=== PATIENT | male | born 1965 | race Caucasian/White ===

== ENCOUNTER 2022-03-24 07:17 | Day surgery (SDC) | payer OTHER ==
[2022-03-18 09:55] LABS: BASOPHILS % (AUTO) 0.5 % (0-1); EOSINOPHILS # (AUTO) 0.1 X10'3 (0-0.9); EOSINOPHILS % (AUTO) 2.5 % (0-6); LYMPHOCYTES # (AUTO) 1.4 X10'3 (1.1-4.8); MEAN CORPUSCULAR HEMOGLOBIN 30.1 PG (27.0-31.0); MEAN CORPUSCULAR VOLUME 91.3 FL (78-98); MEAN PLATELET VOLUME 7.9 FL (7.4-10.4); MONOCYTES # (AUTO) 0.3 X10'3 (0-0.9); NEUTROPHILS # (AUTO) 2.4 X10'3 (1.8-7.7); PRE OP HEMATOCRIT 44.9 % (42.0-52.0); PRE OP HEMOGLOBIN 14.8 g/dL (14.0-17.9); PRE OP PLATELET COUNT 177 X10'3 (140-440); RED BLOOD COUNT 4.92 X10'6 (4.70-6.10); RED CELL DISTRIBUTION WIDTH 12.9 % (11.5-14.5)
[2022-03-18 10:07] LABS: ALBUMIN/GLOBULIN RATIO 1.4 (1.1-1.5); ALKALINE PHOSPHATASE 85 IU/L (46-116); BLOOD UREA NITROGEN 16 MG/DL (7-18); BUN/CREATININE RATIO 17.2 (5.4-32.0); CHLORIDE 105 MMOL/L (99-107); CREATININE 0.93 MG/DL (0.60-1.10); PRE OP ALT 29 U/L (30-65); PRE OP ANION GAP 5 (8-16); PRE OP AST 18 U/L (10-37); PRE OP BILIRUB, TOTAL 0.5 MG/DL (0.0-1.0); PRE OP GLUCOSE 110 MG/DL (70-104); PRE OP POTASSIUM 4.3 MMOL/L (3.4-5.1); PRE OP SODIUM 139 MMOL/L (135-145); TOTAL CARBON DIOXIDE 29.4 MMOL/L (24-32); TOTAL PROTEIN 6.8 G/DL (6.4-8.2); eGFR 84 ML/MIN
[2022-03-18 10:09] LABS: CLARITY,URINE CLEAR (Clear); COLOR,URINE YELLOW (Yellow); GLUCOSE, URINE NEGATIVE (Neg); KETONES,URINE NEGATIVE (Neg); LEUKOCYTE ESTERASE ,URINE NEGATIVE (Neg); NITRITES, URINE NEGATIVE (Neg); OCCULT BLOOD,URINE NEGATIVE (Neg); PH,URINE 7.5 (4.8-8.0); PROTEIN,URINE NEGATIVE (Neg); UROBILINOGEN,URINE 0.2 E.U/dL (0.2-1.0)
[2022-03-18 10:35] LABS: UA COLLECTION TYPE CLN CATCH MIDSTREAM
[2022-03-24] VITALS (14 sets, daily range): BP systolic 99–144; BP diastolic 62–79
[~2022-03-24] VITALS: Ht 188 cm; Wt 98.3 kg
[~2022-03-24 07:17] MED LIST: NO HOME MEDS; ceFAZolin inj. 2,000 MG in dextrose 5%-water 100 ML IV ONE; famotidine 20mg tablet PO ONE; ringers solution, lacted 1,000 ML IV SCH
[2022-03-24] MEDS ORDERED: BUPIVAcaine 0.5% inj/PF 30 ML ONE ×2 (09:20→11:35)
[2022-03-24] MEDS ORDERED: morphine 4 MG/ML inj SYRINge IV PRN (09:35)
[2022-03-24] MEDS ORDERED: ringers solution, lacted 1,000 ML IV SCH (09:35)
[2022-03-24] MEDS ORDERED: hydrALAZINE 20mg/ml inj. IV PRN (09:35)
[2022-03-24] MEDS ORDERED: labetalol 20mg/4ml (5mg/ml) syringe IV PRN (09:35)
[2022-03-24] MEDS ORDERED: ondansetron/PF 4mg/2ml inj IV PRN (09:35)
[2022-03-24] MEDS ORDERED: morphine 2 MG/ML inj. syringe IV PRN (09:35)
[2022-03-24] MEDS ORDERED: fentaNYL/PF 50MCG/1 ML 2ML syringe IV PRN ×2 (09:35)
[2022-03-24] MEDS ORDERED: dexamethasone sod phosphate 10mg/ml inj ONE (10:23)
[2022-03-24] MEDS ORDERED: sevoflurane 250ml liquid IH ONE (10:23)
[2022-03-24] MEDS ORDERED: glycopyrrolate 0.2mg/ml inj ONE (10:23)
[2022-03-24] MEDS ORDERED: neostigmine methylsulfate 1 MG/ML 10ml vial ONE (10:23)
[2022-03-24] MEDS ORDERED: fentaNYL/PF 50MCG/1 ML 2ML syringe ONE (10:30)
[2022-03-24] MEDS ORDERED: midazolam 1 mg/ML 2ml injection ONE (10:31)
[2022-03-24] MEDS ORDERED: rocuronium 10mg/ml inj IV ONE (10:46)
[2022-03-24] MEDS ORDERED: propofol inj 20 ML IV ONE (10:47)
[2022-03-24] MEDS ORDERED: ondansetron/PF 4mg/2ml inj ONE (10:47)
[2022-03-24] MEDS ORDERED: BUPIVAcaine 0.5% inj/PF 30 ml vial IJ ONE (10:52)
[2022-03-24] MEDS ORDERED: BUPIVACAINE liposomal/PF 13.3 MG/ML vial IM ONE (11:35)
--- NOTE | 2022-03-24 12:05 | NUR ---
Received from OR via BED, accompanied by Anesthesiologist and report given by Anesthesiologist. PATIENT WAKING UP, NO S/S OF PAIN, V/S WNL, SCD ON, 20G TO LUE, ABDOMEN LAP SITE CLEAN W/ NO S/S OF COMPLICATION
[2022-03-24] MEDS ORDERED: HYDROcodone/acetaminophen 10/325mg tab PO ONE (12:10)
--- NOTE | 2022-03-24 14:41 | NUR ---
PATIENT UNABLE TO VOID BLADDER SCAN IS ONLY 100CC SO FAR. PATIENT SERVED COFFEE AND ENCOURAGED MORE WATER INTAKE.
--- NOTE | 2022-03-24 15:45 | NUR ---
PATIENT A&OX4, DENIES PAIN, V/S WNL, SCD OFF, 20G TO LUE D/C, ABDOMEN LAP SITE CLEAN W/ NO S/S OF COMPLICATION. PATIENT WAS ABLE TO VOID ON 3 SEPARATE OCCASIONS WITH SMALL AMOUNTS EACH TIME BUT BLADDER SCAN ONLY SHOWED POST VOID AFTER EACH TIME UNDER 60CC. PATIENT OKAY TO D/C HOME PER DR ALEXIS. I HAVE REVIEWED D/C INSTRUCTIONS WITH PATIENT and they have verbalized understanding patient d/c home with all belongings and family gave transport home.
== END 2022-03-24 15:45 | disposition home or self-care (01) ==
LOC: PAS 07:17
PROVIDERS: ATTEND Surgery
DX: K40.90 Unilateral inguinal hernia, without obstruction or gangrene, not specified as recurrent (principal); Z98.52 Vasectomy status; Z98.890 Other specified postprocedural states; Z72.89 Other problems related to lifestyle; Z79.899 Other long term (current) drug therapy; Z80.42 Family history of malignant neoplasm of prostate
CPT/HCPCS: 36415; 49650; 64488; 80053; 81003; 82948; 85025; 93005; C1758; C1781; C9290; J0690; J1100; J2250; J2405; J2704; J2710; J3010; J3490; J7030; J7060; J7120; S0020; S2900; Z7506; Z7508; Z7512; A4215; A4618